=== PATIENT | female | born 1965 | race African-American/Black ===

== ENCOUNTER → 2017-08-29 | Outpatient (CLI) | payer BC ==
[~2017-08-29] MED LIST: ACETAMINOPHEN325 M1 PO; BENTYL20 MG PO; HYDROCODON-ACE1 EAC7 PO; IBUPROFEN 800800 M1 PO; NOHOMEMEDICATIONS; NORCO 5-325 TA1 EACH PO; PROTONIX40 M4 PO; SIMETHICON CHEW80 M1 PO
== END ==
LOC: CAT 09:19
DX: R10.9 Unspecified abdominal pain (principal)

== ENCOUNTER 2021-02-24 21:43 | Emergency (ER) | payer BC ==
[~2021-02-24] VITALS: Ht 149.9 cm; Wt 76.7 kg
[2021-02-24 21:45] VITALS: BP 161/93
[2021-02-24] MEDS ORDERED: TRIMETHOPRIM /P10 M1 OPHTHALMIC (22:49)
== END 2021-02-24 23:02 | disposition home or self-care (01) ==
LOC: ER 21:43
DX: S05.02XA Injury of conjunctiva and corneal abrasion without foreign body, left eye, initial encounter (principal); Z79.899 Other long term (current) drug therapy; Z98.890 Other specified postprocedural states; Z90.49 Acquired absence of other specified parts of digestive tract; Z90.710 Acquired absence of both cervix and uterus; X58.XXXA Exposure to other specified factors, initial encounter; Y93.89 Activity, other specified; Y92.89 Other specified places as the place of occurrence of the external cause; Y99.9 Unspecified external cause status